=== PATIENT | male | born 1970 | race Caucasian/White ===

== ENCOUNTER 2021-07-27 06:20 | Outpatient (CLI) | payer OTHER, SELFPAY ==
--- NOTE | 2021-07-27 06:34 | MRI_ITS ---
STUDY: MRI UPPER EXTREMITY LEFT HUMERUS WITHOUT CONTRAST REASON FOR EXAM: Left biceps/upper arm pain for about 2 weeks. TECHNIQUE: Standardized fat and water weighted pulse sequences were obtained in all 3 orthogonal planes. COMPARISON: None. FINDINGS: Normal subcutis adipose space. There is no demonstrated solid, cystic, or lipomatous mass within the subcutaneous adipose space. There is subacromial-subdeltoid bursitis as reported on the MRI shoulder examination. Normal visualized muscles and fascia. There is no intramuscular edema of the biceps and the long biceps tendon appears intact. Normal visualized neurovascular bundles. There is very mild cystic change of the greater tuberosity. Otherwise, unremarkable visualized humerus. MRI/Upper Ext/No Jt/ wo IMPRESSION: Unremarkable MRI of the left upper extremity without demonstrated biceps muscle strain. Electronically Signed: Parag Mar MD at 9:24 EST ,
--- NOTE | 2021-07-27 06:34 | MRI_ITS ---
STUDY: MRI LEFT SHOULDER REASON FOR EXAM: Left superior shoulder pain extending down arm for approximately 2 weeks. TECHNIQUE: Standardized fat and water weighted pulse sequences were obtained in all 3 orthogonal planes. COMPARISON: None. FINDINGS: There is supraspinatus tendinosis and a small intrasubstance partial-thickness tear of the distal anterior supraspinatus tendon at the greater tuberosity insertion (T2 coronal image 7) measuring 0.5 cm in length. Normal infraspinatus tendon. There is mild subscapularis tendinosis (proton-density axial images 10-12) without discrete tendon tear. Normal teres minor tendon. Normal supraspinatus muscle. Normal infraspinatus muscle. Normal subscapularis muscle. Normal teres minor muscle. Normal glenohumeral articulation. There is very mild cystic change of the greater tuberosity. Normal biceps labral complex. Normal intracapsular long biceps tendon. Normal labrum. Normal capsulo- ligamentous complex. There is mild acromioclavicular arthrosis without substantial undersurface osteophytes (T2 sagittal image 13). There is a Type II morphology (curved), with a neutral orientation. There is subacromial-subdeltoid bursal fluid. Normal visualized coracohumeral and coracoacromial ligaments. Normal deltoid muscle. Normal trapezius muscle. MRI/Upper Ext Joint Only(Routine) IMPRESSION: Small intrasubstance partial-thickness tear and tendinosis of the supraspinatus tendon. Mild subscapularis tendinosis. Mild acromioclavicular arthrosis. Subacromial-subdeltoid bursitis. Electronically Signed: Parag Mar MD at 9:25 EST ,
== END 2021-07-27 23:59 | disposition home or self-care (01) ==
LOC: MRI 06:23
PROVIDERS: PCP Nurse Practitioner Primary Care; Referring Provider Family Medicine; Visit Provider Family Medicine
DX: S40.012A Contusion of left shoulder, initial encounter (principal); S43.402A Unspecified sprain of left shoulder joint, initial encounter
CPT/HCPCS: 73218; 73221

== ENCOUNTER 2022-12-21 11:56 | Emergency (ER) | payer OTHER, SELFPAY ==
[2022-12-21 11:57] VITALS: BP 150/114; PULSE 81; RESP 16; TEMP 36.2; O2SAT 100; BMI 26.6
--- NOTE | 2022-12-21 12:13 | EDS_ITS ---
HPI History of Present Illness Chief Complaint: Flank Pain Informant: patient Onset/Context/Timing Onset: Today Context: Sudden Onset Timing: Continuous Quality: Sharp Location: Left flank and lower back Worsened by: Movement Relieved by: Nothing Narrative Narrative: Patient presents with left flank pain that began today. Patient states the was driving home from physical therapy today and the pain got worse. Patient states the pain began suddenly became worse. Patient is in physical therapy for a muscle strain to his left flank area. Patient states this pain is different from the pain that he had from his prior injury. Patient describes his pain as sharp. Patient states pain is worse with movement. Patient states nothing seems to help with the pain. Patient admits to an episode of nausea and vomiting due to the pain. Patient denies any dysuria or hematuria. [facility] Medical History (Updated 12/21/22 @ 13:[address] Rick Lancaster DO) Hypothyroidism Home Medications hydrocodone-acetaminophen 5-325mg 5mg-325mg 1 tab PO Q6H PRN PRN Pain 3 days #10 TABLETS 12/21/22 [Rx Last Taken Unknown] levothyroxine 100 mcg tablet 100 mcg PO DAILY 12/21/22 [History Last Taken 12/21/22] Allergy/AdvReac Type Severity Reaction Status Date / Time No Known Allergies Allergy Verified 12/21/22 11:59 Surgical History no surgical history no surgical history Social History Smoking Status: Never smoker ROS ROS ED Constitutional Constitutional ED: Denies chills or fever(s) Eyes Eyes: Denies blurry vision or change in vision ENT ENT ED: Denies rhinorrhea or sore throat Cardiovascular Cardiovascular: Denies chest pain or palpitations Respiratory/Chest Respiratory/Chest: Denies cough or dyspnea Gastrointestinal Gastrointestinal: Reports nausea and vomiting Genitourinary Genitourinary ED: Denies dysuria or hematuria Musculoskeletal Musculoskeletal: Reports back pain; Denies neck pain Integumentary Denies abscess or rash Neurologic Neurologic: Denies headache(s) or weakness Allergic/Immunologic Allergic/Immunologic ED: Denies mouth swelling or urticaria EXAM Physical Exam Const Vital Signs: 12/21/22 11:57 12/21/22 12:05 12/21/22 13:24 Temperature 97.1 F L Temperature Source Temporal Pulse Rate 81 18 L Respiratory Rate 16 18 Respiratory Pattern Normal Blood Pressure 150/114 H 146/97 H Blood Pressure Mean 126 113 Pulse Ox 100 99 Oxygen Delivery Method Room Air Positive well nourished and well developed General Appearance ED: well developed and NAD HEENT Reports moist mucous membranes Neck supple and no JVD Resp normal respiratory effort and clear to auscultation bilaterally Cardio regular rate, regular rhythm and no murmurs GI normal to inspection, nondistended, normoactive bowel sounds and non-tender Palpation: soft Back/Spine no CVA tenderness Extremity normal to inspection General Extremety ED: Negative for edema or tenderness General Extremity: Negative for edema Neuro oriented x3, CN's II-XII intact bilaterally and no sensory deficits noted Sensorium / Orientation: alert Motor Exam: strength 5/5 throughout Psych mental status grossly normal Skin no rashes or lesions noted MDM MDM MDM Narrative Medical decision making narrative: Differential diagnosis includes musculoskeletal strain, ureteral calculus, pyelonephritis, abdominal aortic aneurysm, urinary tract infection, diverticulitis, and colitis. CBC will be obtained to assess for leukocytosis and anemia. Basic metabolic profile will be obtained to assess for electrolyte abnormality and renal function. Urinalysis will be obtained to assess for urinary tract infection and hematuria. CT scan of the abdomen and pelvis will be obtained to assess for ureteral calculus, pyelonephritis, and diverticulitis. Lab Data Attestation: I reviewed the patient's lab results. Lab results narrative: CBC was reviewed and was within normal limits. Basic metabolic profile was reviewed and was within normal limits. Urinalysis was reviewed. There is no evidence of urinary tract infection or hematuria. Labs: Laboratory Results - last 24 hr 12/21/22 12/21/22 12:19 13:00 WBC 6.8 RBC 5.45 Hgb 15.5 Hct 45.0 MCV 82.6 MCH 28.4 MCHC 34.4 RDW Std Deviation 39.7 RDW Coeff of [place] 13.3 Plt Count 203 MPV 10.2 Immature Gran % (Auto) 0.600 Neut % (Auto) 52.5 Lymph % (Auto) 33.3 [place] % (Auto) 8.5 Eos % (Auto) 4.2 Baso % (Auto) 0.9 Absolute Neuts (auto) 3.6 Absolute Lymphs (auto) 2.28 Nucleated RBC % 0 Sodium 137 Potassium 3.5 Chloride 104 Carbon Dioxide 26.0 Anion Gap 7 BUN 11 Creatinine 1.23 Estim Creat Clear Calc 82.61 Est GFR (MDRD) Af Amer 80 Est GFR (MDRD) Non-Af 66 BUN/Creatinine Ratio 8.9 L Glucose 92 Calcium 9.1 Urine Color Yellow Urine Clarity Clear Urine pH 7.0 Ur Specific [place] 1.005 Urine Protein Negative Urine Glucose (UA) Normal Urine Ketones Negative Urine Occult Blood Negative Urine Nitrite Negative Urine Bilirubin Negative Urine Urobilinogen Normal Ur Leukocyte Esterase Negative Urine RBC 0 SEEN Urine WBC 0 SEEN Ur Squamous Epith Cells 0 SEEN Urine Bacteria 0 SEEN Urine Mucus 0 SEEN Radiography Diagnostic Testing: Clinical Impression(s) from Imaging Studies Abdomen/Pelvis CT 12/21/22 12:13 IMPRESSION: Negative CT abdomen and pelvis without oral or IV contrast. Electronically Signed: Eric Wetzelnick, at 12:59 EDT Reading Location ID and State: [address] [place] [address] Tel , Service support , CT scan of the abdomen and pelvis was obtained. There is no acute abnormality noted. This was interpreted by the radiologist and was also independently reviewed by myself. Treatment and Re-Evaluation :: Patient was given IV fluids, Zofran, and morphine. Patient states he had no improvement of his pain with morphine. Patient is resting comfortably however. Patient states that whenever he moves the pain comes back. Patient was advised of his findings. Patient was advised that this could still be musculoskeletal in etiology. Patient was given a prescription for a short course of [place]. Patient was instructed to drink plenty of fluids. Patient was instructed to follow-up with his primary care physician in 5 to 7 days. Patient understood and was agreeable with the plan. All questions were answered. Discharge Plan Triage Chief Complaint: Flank Pain ED Provider: Rick Lancaster Dx/Rx/DC Orders Clinical Impression: Acute left flank pain Instructions: ED Flank Pain, Uncertain Cause Prescriptions: New hydrocodone-acetaminophen [hydrocodone-acetaminophen] 5-325 mg tablet 1 tab PO Q6H PRN PRN (Reason: Pain) 3 Days Qty: 10 0RF No Action levothyroxine 100 mcg tablet 100 mcg PO DAILY Patient Comments: take 1 tablet by mouth once daily Stand Alone Forms: ED Work / School Excuse Primary Care Provider: Estefania Peña NP Referrals: Estefania Peña NP, [employer] [Primary Care Provider] - Disposition Disposition: Home, Self Care
--- NOTE | 2022-12-21 12:13 | CT_ITS ---
INDICATION: Left flank pain EXAMINATION: CT ABDOMEN AND PELVIS WITHOUT CONTRAST - CT Abdomen And Pelvis W/O Contrast Injection TECHNIQUE: Helically acquired images were obtained of the abdomen and pelvis without oral or IV contrast. A radiation dose optimization technique was used for this scan. IV Contrast dosage and agent: None. Oral contrast: None. RADIATION DOSAGE (If Supplied By Facility): CTDIvol = ( 8.68 ) mGy, DLP = ( 459.74 ) mGycm COMPARISON: FINDINGS: LOWER CHEST: Lung bases are clear. No cardiomegaly or pericardial effusion. LIVER: Homogeneous. No focal mass. GALLBLADDER AND BILIARY TREE: No calcified gallstones. No gallbladder distension or wall edema. No intra- or extrahepatic biliary ductal dilation. PANCREAS: No focal cystic or solid mass. SPLEEN: Normal size without focal cystic or solid mass. ADRENAL GLANDS: No nodules. KIDNEYS AND URETERS: Normal renal size and position. No hydronephrosis. PERITONEUM: No ascites or free air. No other fluid collection. BOWEL: No evidence of acute appendicitis. No stomach or bowel distension. No focal inflammatory change. LYMPH NODES: No enlarged mesenteric or retroperitoneal lymph nodes. VESSELS: Aorta is non-dilated. URINARY BLADDER: Unremarkable. REPRODUCTIVE ORGANS: No pelvic masses. ABDOMINAL WALL: No discrete abdominal or pelvic wall hernia. BONES: No lytic or blastic abnormality. CT/Abdomen/Pelvis without Cont IMPRESSION: Negative CT abdomen and pelvis without oral or IV contrast. Electronically Signed: Eric Miner, at 12:59 EDT ,
[2022-12-21] MEDS: Morphine 4 MG/ML Syringe IV (12:17)
[2022-12-21] MEDS: 0.9% Normal Saline 1,000 ML 1000 ML IV (12:17)
[2022-12-21] MEDS: Ondansetron 4 MG/2 ML Vial IV (12:17)
[2022-12-21 12:39] LABS: Absolute Lymphocyte Count 2.28 X10^3/uL (0.83-4.51); Absolute Neutrophil Count 3.6 X10^3/uL (2.0-7.7); Basophil# 0.06 X10^3/uL; Basophil% 0.9 % (0-1); Eosinophil# 0.29 X10^3/uL; Eosinophils% 4.2 % (0-5); Hemoglobin 15.5 g/dL (13.0-16.5); Lymphocyte # 2.28 X10^3/ul (0.83-4.51); Lymphocyte % 33.3 % (19-41); Mean Corp Hgb Conc 34.4 g/dL (32-36); Mean Corpuscular Hgb 28.4 pg (27.0-32.0); Mean Corpuscular Volume 82.6 fL (80-94); Mean Platelet Vol. 10.2 fl (6.2-12.0); Monocyte# 0.58 X10^3/uL; Monocyte% 8.5 % (0-10); NRBC Flagged by Analyzer 0 % (0-5); Neutrophil # 3.59 X10^3/uL (2.7-7.7); Neutrophil % 52.5 % (47-70); Platelet Count 203 K/mm3 (150-450); RBC Distribution Width CV 13.3 % (11.6-14.6); RBC Distribution Width SD 39.7 fl (35.1-43.9); Red Blood Count 5.45 M/mm3 (4.6-6.2); White Blood Count 6.8 K/mm3 (4.4-11.0)
[2022-12-21 12:54] LABS: Anion Gap 7 (5-15); BUN 11 mg/dL (7-18); BUN/Creat Ratio 8.9 RATIO (10-20); Calcium,Total 9.1 mg/dL (8.5-10.1); Chloride 104 mmol/L (98-107); Creatinine, Serum 1.23 mg/dL (0.70-1.30); EST Glomerular Filtration Rate 66 mL/min (>60); Est Glom Filt Rate - Afr Amer 80 mL/min (>60); Estimated Creatinine Clearance 82.61 ml/min; Glucose 92 mg/dL (74-106); Potassium 3.5 mmol/L (3.5-5.1); Sodium Level 137 mmol/L (136-145)
[2022-12-21 13:08] LABS: Bacteria 0 SEEN /hpf (None Seen); Mucous, Urine 0 SEEN /hpf (<or=2+); Red Blood Cells-Urine 0 SEEN /hpf (0-5); Squamous Epithelial Cells - UA 0 SEEN /hpf (0-5); White Blood Cells 0 SEEN /hpf (0-5)
[2022-12-21 13:13] LABS: Color, Urine Yellow (Yellow); Glucose, Dipstick Normal (Normal); Ketone-Dipstick Negative (Negative); Leukocyte Esterase-Dipstick Negative /ul (Negative); Nitrite-Dipstick Negative (Negative); Occult Blood-Urine Negative /ul (Negative); Protein-Dipstick Negative (Negative); Specific Gravity, Urine 1.005 (1.002-1.030); Urine Bilirubin Dipstick Negative (Negative); Urine Clarity Clear (Clear); Urine Urobilinogen Normal (Normal)
[2022-12-21 13:24] VITALS: BP 146/97; PULSE 18; RESP 18; O2SAT 99
[2022-12-21 13:58] VITALS: BP 147/101; PULSE 86; RESP 16
== END 2022-12-21 13:58 | disposition home or self-care (01) ==
PROVIDERS: Emergency Provider Emergency Medicine; PCP Nurse Practitioner Primary Care; Visit Provider Emergency Medicine
DX: R10.9 Unspecified abdominal pain (principal); R11.2 Nausea with vomiting, unspecified; M54.50 Low back pain, unspecified; E03.9 Hypothyroidism, unspecified; Z79.890 Hormone replacement therapy
CPT/HCPCS: 74176; 80048; 81001; 85025; 96361; 96374; 96375; 99283; J7030; J2405